=== PATIENT | male | born 1975 | race Caucasian/White ===

== ENCOUNTER 2024-02-03 18:04 | Emergency (ER) | payer BC, OTHER ==
[~2024-02-03] VITALS: Ht 170.2 cm; Wt 96.3 kg
[~2024-02-03 18:04] MED LIST: METF-346 PO
[2024-02-03 18:39] VITALS: BP 141/88; PULSE 104; RESP 18; TEMP 99.4; O2SAT 97
[2024-02-03] MEDS ORDERED: IBUP-2213 PO (19:01)
[2024-02-03] MEDS ORDERED: CEPH500C16 PO (19:01)
[2024-02-03 19:26] VITALS: BP 141/88; PULSE 104; RESP 18; TEMP 99.4; O2SAT 97
== END 2024-02-03 19:26 | disposition home or self-care (01) ==
LOC: MED 18:04
DX: L97.519 Non-pressure chronic ulcer of other part of right foot with unspecified severity (principal); R50.9 Fever, unspecified; F12.90 Cannabis use, unspecified, uncomplicated; E11.9 Type 2 diabetes mellitus without complications; Z79.84 Long term (current) use of oral hypoglycemic drugs; Z79.899 Other long term (current) drug therapy
CPT/HCPCS: 82948; 99283